=== PATIENT | female | born 1970 | race African-American/Black ===

== ENCOUNTER 2017-05-21 15:13 | Emergency (ER) | payer OTHER ==
[2017-05-21 15:22] VITALS: TEMP 97.7; BMI 20.5
--- NOTE | 2017-05-21 16:46 | PDOC ---
History of Present Illness - General Chief Complaint: Blood Transfusion Stated Complaint: SENT FOR EVALUATION Time Seen by Provider: 05/21/17 16:38 History Source: Patient - History of Present Illness Initial Comments: 05/21/17 16:48 CC: "I need a blood transfusion" Patient is a 47 y.o. female with a PMH of GERD, CHF, CKD, HTN, HLD, IDDM, Anemia (likely 2/2 to chronic disease) who presents to our ED today following lab results at an outside institution that shows Hb levels of 7 (as per EMR, patient's baseline Hb is 9-10). Patient denies any SiSx of anemia including palpitations, shortness of breath, lightheadedness. Patient further denies chest pain, abdominal pain, nausea, vomiting or diarrhea. Past History - Past Medical History Allergies/Adverse Reactions: Allergies Allergy/AdvReac Type Severity Reaction Status Date / Time No Known Allergies Allergy Verified 05/21/17 15:18 Home Medications: Ambulatory Orders Amlodipine Besylate 10 mg PO DAILY 04/02/16 Aspirin [Aspirin EC] 81 mg PO DAILY 04/02/16 Atorvastatin Calcium 40 mg PO DAILY 04/02/16 Ferrous Sulfate 325 mg PO BID 04/02/16 Sertraline HCl [Zoloft -] 25 mg PO DAILY 04/02/16 Insulin (Levemir) [Levemir Vial] 7 units SQ AM #1 ml 04/07/16 Labetalol HCl [Normodyne -] 200 mg PO BID #30 tablet 07/08/16 Lisinopril [Prinivil] 10 mg PO DAILY #30 tablet 07/08/16 Unobtainable 05/21/17 Anemia: Yes Asthma: No Cancer: No Cardiac Disorders: Yes CVA: No COPD: No CHF: No Dementia: No Diabetes: Yes (iddm) GI Disorders: Yes (gerd) Disorders: No HTN: Yes Hypercholesterolemia: Yes Liver Disease: (? cirrhosis) Seizures: No Thyroid Disease: No - Surgical History Abdominal Surgery: Yes Appendectomy: No Cardiac Surgery: No Cholecystectomy: No Lung Surgery: No Neurologic Surgery: No Orthopedic Surgery: No - Immunization History Immunization Up to Date: Yes - Suicide/Smoking/Psychosocial Hx Smoking Status: No Smoking History: Never smoked Have you smoked in the past 12 months: No Number of Cigarettes Smoked Daily: 0 Cigars Per Day: 0 Hx Alcohol Use: No Drug/Substance Use Hx: No Substance Use Type: None Hx Substance Use Treatment: No Review of Systems - Review of Systems Constitutional: No: Chills, Fever HEENTM: No: Blurred Vision, Double Vision Respiratory: No: Cough, Shortness of Breath Cardiac (ROS): Yes: Lightheadedness. No: Chest Pain, Palpitations ABD/GI: No: Constipated, Diarrhea, Nausea, Vomiting : No: Burning, Dysuria *Physical Exam - Vital Signs Last Vital Signs Temp Pulse Resp BP Pulse Ox 97.7 F 94 H 20 150/85 100 05/21/17 15:18 05/21/17 15:18 05/21/17 15:18 05/21/17 15:18 05/21/17 15:18 - Physical Exam General Appearance: Yes: Nourished, Thin HEENT: positive: Other (No conjunctival pallor noted B/L) Neck: positive: Trachea midline, Supple Respiratory/Chest: positive: Lungs Clear, Normal Breath Sounds Cardiovascular: positive: S1, S2 Gastrointestinal/Abdominal: positive: Normal Bowel Sounds, Soft Musculoskeletal: negative: CVA Tenderness, CVA Tenderness (R) Neurologic: positive: inventory control supervisor II-XII NML intact, Fully Oriented, Alert ED Treatment Course - LABORATORY CBC & Chemistry Diagram: 05/21/17 18:13 05/21/17 18:13 Medical Decision Making - Medical Decision Making 05/21/17 19:03 Patient is a 47 y.o. female who presents at behest of her PCP for a reported Hb of 7 PLAN: 1. CBC, CMP 2. Gentle Hydration - patient denies h/o of CHF, Echo in 2014 shows EF 55% however previous notes state PMH of CHF Will send Type/Screen and Coags pending confirmation of Hb result Patient signed out to Dr. Ronan Ham (Resident) and Dr. Vo (Attending ) 05/21/17 19:06 Patient's Hb 9.0. Patient discharged with copy of her labs and direction with her PCP Dr. Burch. *DC/Admit/Observation/Transfer Diagnosis at time of Disposition: Abnormal laboratory test result - Discharge Dispostion Disposition: HOME Condition at time of disposition: Good Admit: No - Referrals Referrals: Myesha Burch MD [Primary Care Provider] - - Patient Instructions Printed Discharge Instructions: Anemia, Anemia of Chronic Disease Additional Instructions: Please follow up with your primary care doctor tomorrow as scheduled. You have been provided a copy of your labs, please take these with you. Please return to the Emergency Department should you have any worsening or concerning symptoms.
--- NOTE | 2017-05-21 17:17 | PDOC ---
Attending Attestation - Resident Resident Name: Harriet Sandoval - ED Attending Attestation I have performed the following: I have examined & evaluated the patient, The case was reviewed & discussed with the resident, I agree w/resident's findings & plan, Exceptions are as noted - HPI HPI: 05/21/17 17:11 47yo F hx GERD, CKD, HTN, HL, IDDM, CVA w no residual deficits p/w hgb 7 from outpt labs Friday. Pt denies any symptoms, states she is at her baseline. Reports no lightheadedness, sob, dizziness, cp, palpitations, headache, weakness or numbness, rashes. PMD: Dr. Weaver ([facility]) - Physicial Exam PE: 05/22/17 01:50 GENERAL: Awake, alert, and fully oriented, in no acute distress HEAD: No signs of trauma EYES: PERRLA, EOMI, sclera anicteric, conjunctiva clear ENT: Auricles normal inspection, hearing grossly normal, nares patent, oropharynx clear without exudates. Moist mucosa NECK: Normal ROM, supple, no lymphadenopathy, JVD, or masses LUNGS: Breath sounds equal, clear to auscultation bilaterally. No wheezes, and no crackles HEART: Regular rate and rhythm, normal S1 and S2, no murmurs, rubs or gallops ABDOMEN: Soft, nontender, normoactive bowel sounds. No guarding, no rebound. No masses EXTREMITIES: Normal range of motion, no edema. No clubbing or cyanosis. No cords, erythema, or tenderness NEUROLOGICAL: Normal speech, cranial nerves intact, negative pronator drift, 5/ 5 strength in all 4 extremities, normal sensation to light touch in all 4 extremities, normal cerebellar exam, normal gait, normal reflexes and tone SKIN: Warm, Dry, normal turgor, no rashes or lesions noted. - Medical Decision Making 05/22/17 01:51 47-year-old female with multiple medical problems presents with hemoglobin of 7 on outpatient labs. Patient is asymptomatic here in the emergency department with normal exam and normal vitals. Our repeat hemoglobin here is 9 which is her baseline hemoglobin. Will discharge patient to follow-up with her primary doctor tomorrow as scheduled. I discussed the physical exam findings, ancillary test results and final diagnoses with the patient. I answered all of the patient's questions. The patient was satisfied with the care received and felt comfortable with the discharge plan and treatment plan. The patient will call their primary care physician within 24 hours to arrange follow-up and will return to the Emergency Department with any new, persistent or worsening symptoms.
[2017-05-21] MEDS ORDERED: SODIUM CHLORIDE 0.9% 1000 ML INFUS.BAG IV ONE (18:16)
[2017-05-21 18:19] LABS: BASOPHIL 0.3 % (0-2.0); EOSINOPHIL 8.8 % (0-4.5); MCH 26.9 pg (25.7-33.7); MCHC 33.2 g/dl (32.0-36.0); MEAN CELL VOLUME 80.9 fl (80-96); MEAN PLT VOLUME 8.8 fl (7.5-11.1); NEUTROPHILS 64.1 % (42.8-82.8); PLATELET COUNT 396 K/MM3 (134-434); RDW 16.2 % (11.6-15.6); WHITE BLOOD COUNT 8.7 K/mm3 (4.0-10.0)
[2017-05-21 18:41] LABS: ALBUMIN 2.6 g/dl (3.4-5.0); ALK PHOS 83 U/L (45-117); ANION GAP 10 (8-16); BILIRUBIN,TOTAL 0.2 mg/dL (0.2-1.0); CALCIUM 8.8 mg/dL (8.5-10.1); CO2 25 mmol/L (21-32); CREATININE 1.6 mg/dL (0.55-1.02); GLUCOSE,RANDOM 275 mg/dL (74-106); SGOT/AST 22 U/L (15-37); SGPT/ALT 24 U/L (12-78); TOT PROT 6.6 g/dl (6.4-8.2)
--- NOTE | 2017-05-21 19:28 | PDOC ---
*Physical Exam - Vital Signs Last Vital Signs Temp Pulse Resp BP Pulse Ox 97.7 F 94 H 20 150/85 100 05/21/17 15:18 05/21/17 15:18 05/21/17 15:18 05/21/17 15:18 05/21/17 15:18 ED Treatment Course - LABORATORY CBC & Chemistry Diagram: 05/21/17 18:13 05/21/17 18:13 - ADDITIONAL ORDERS Additional order review: Laboratory Results 05/21/17 05/21/17 18:13 18:13 Sodium 138 Potassium 4.8 D Chloride 103 Carbon Dioxide 25 Anion Gap 10 BUN 33 H D Creatinine 1.6 H D Creat Clearance w eGFR 34.55 Random Glucose 275 H D Calcium 8.8 Total Bilirubin 0.2 D AST 22 D ALT 24 D Alkaline Phosphatase 83 Total Protein 6.6 Albumin 2.6 L Urine HCG, Qual Negative 05/21/17 18:13 RBC 3.36 L MCV 80.9 MCHC 33.2 RDW 16.2 H MPV 8.8 Neutrophils % 64.1 Lymphocytes % 22.5 Monocytes % 4.3 Eosinophils % 8.8 H D Basophils % 0.3 - Medications Given in the ED: ED Medications Discontinued Medications Generic Name Dose Route Start Last Admin Trade Name Freq PRN Reason Stop Dose Admin Sodium Chloride 500 ml 05/21/17 18:16 05/21/17 18:34 Normal Saline - IV 05/21/17 18:17 500 ml ONCE ONE Administration Medical Decision Making - Medical Decision Making 05/21/17 19:28 Care taken over from Dr. Sandoval. *DC/Admit/Observation/Transfer Diagnosis at time of Disposition: Abnormal laboratory test result - Discharge Dispostion Disposition: HOME Condition at time of disposition: Good - Referrals Referrals: Myesha Burch MD [Primary Care Provider] - - Patient Instructions Printed Discharge Instructions: Anemia, Anemia of Chronic Disease Additional Instructions: Please follow up with your primary care doctor tomorrow as scheduled. You have been provided a copy of your labs, please take these with you. Please return to the Emergency Department should you have any worsening or concerning symptoms. - Post Discharge Activity
[2017-05-21 19:55] VITALS: BP 145/89; PULSE 89
== END 2017-05-21 19:57 | disposition home or self-care (01) ==
LOC: JER 15:13
PROC: 3E0337Z Introduction of Electrolytic and Water Balance Substance into Peripheral Vein, Percutaneous Approach (ICD-10-PCS; principal; 2017-05-21)
DX: R79.9 Abnormal finding of blood chemistry, unspecified (principal); K21.9 Gastro-esophageal reflux disease without esophagitis; I10 Essential (primary) hypertension; E78.5 Hyperlipidemia, unspecified; E11.9 Type 2 diabetes mellitus without complications; I50.9 Heart failure, unspecified
CPT/HCPCS: 36415; 71020-TC; 80053; 84703; 85025; 99282-25

== ENCOUNTER 2019-08-15 08:02 | Emergency (ER) | payer OTHER ==
[2019-08-15 08:16] VITALS: BMI 20.5
[2019-08-15] MEDS ORDERED: ONDANSETRON 4 MG/2 ML VIAL IVPUSH ONE (08:26)
--- NOTE | 2019-08-15 08:27 | PDOC ---
History of Present Illness - General Chief Complaint: Nausea/Vomiting Stated Complaint: POSSIBLE FOOD POISONING Time Seen by Provider: 08/15/19 08:05 - History of Present Illness Initial Comments: 49yo F with PMH of HTN, HLD, DM, GERD presenting with vomiting x 3 days. Patient 's mother called 9- when patient continued to vomit. She has been vomiting "all day." Not able to tolerate any po intake. This has never happened before. No abdominal pain. Due to the vomiting, patient has been unable to take any of her medications at home. Per EMS, fingerstick glucose was in the 180s. Denies tobacco, alcohol, or other recreational substance abuse. No sick contacts or recent travel. Denies fevers, chills, chest pain, or shortness ofb reath. PCP: a provider affiliated with [facility] ROS: Constitutional: no fever, no chills HEENT: no throat pain, no dysphagia Cardiovascular: no chest pain, no palpitations Respiratory: no cough, no shortness of breath Gastrointestinal: no abdominal pain, +vomiting Genitourinary: no dysuria, no hematuria Musculoskeletal: no myalgia, no arthralgia Skin: no rash, no itching Neurologic: no headache, +weakness PE: General: Awake, alert, and fully oriented, retching into emesis bag, appears lethargic Head: No signs of trauma Eyes: EOMI, sclera anicteric ENT: Dry mucus membranes Neck: Normal ROM, supple Lungs: Lungs clear, Normal breath sounds Cardio: Regular rhythm, S1 and S2 present Abdomen: Soft, nontender. No guarding, no rebound, no masses Extremities: Normal range of motion, Distal pulses present SKIN: Warm, Dry, normal turgor Neurologic: Cranial nerves II through XII grossly intact. Normal speech ED Course/MDM: DDX including but not limited to ACS, hypertensive urgency/emergency, pancreatitis, , cannabinoid hyperemesis VS significant for hypertension Labs, EKG, CXR Zofran 08/15/19 08:26 EKG: rate 85, Qtc 435, NSR CXR as reported by radiology: " EXAM#: TYPE/EXAM: RESULT: [id number] RAD/CHEST X-RAY PORTABLE* Chest: Weakness. Single view of the chest reveals a large heart, normal aorta and normal keisha. The lungs are clear. The angles are sharp and the soft tissues are intact. Significant arthritic changes are not seen. Impression: No acute chest pathology. No change of an adverse nature since 05/21/2017. 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 to ascertain patient's home meds as [facility] is closed 08/15/19 09:41 CBC WBC 8.1 K/mm3 (4.0-10.0) 08/15/19 08:50 RBC 3.97 M/mm3 (3.60-5.2) 08/15/19 08:50 Hgb 10.5 GM/dL (10.7-15.3) L 08/15/19 08:50 Hct 31.8 % (32.4-45.2) L D 08/15/19 08:50 MCV 80.2 fl (80-96) 08/15/19 08:50 MCH 26.5 pg (25.7-33.7) 08/15/19 08:50 MCHC 33.1 g/dl (32.0-36.0) 08/15/19 08:50 RDW 16.2 % (11.6-15.6) H 08/15/19 08:50 Plt Count 385 K/MM3 (134-434) 08/15/19 08:50 MPV 8.9 fl (7.5-11.1) 08/15/19 08:50 Absolute Neuts (auto) 7.2 K/mm3 (1.5-8.0) 08/15/19 08:50 Neutrophils % 88.2 % (42.8-82.8) H D 08/15/19 08:50 Lymphocytes % 9.8 % (8-40) D 08/15/19 08:50 Monocytes % 0.8 % (3.8-10.2) L D 08/15/19 08:50 Eosinophils % 0.0 % (0-4.5) D 08/15/19 08:50 Basophils % 1.2 % (0-2.0) D 08/15/19 08:50 Nucleated RBC % 0 % (0-0) 08/15/19 08:50 No leukocytosis CMP Sodium 139 mmol/L (136-145) 08/15/19 08:50 Potassium 4.2 mmol/L (3.5-5.1) 08/15/19 08:50 Chloride 105 mmol/L (98-107) 08/15/19 08:50 Carbon Dioxide 25 mmol/L (21-32) 08/15/19 08:50 Anion Gap 10 MMOL/L (8-16) 08/15/19 08:50 BUN 28.6 mg/dL (7-18) H 08/15/19 08:50 Creatinine 1.9 mg/dL (0.55-1.3) H 08/15/19 08:50 Est GFR (CKD-EPI)AfAm 35.26 08/15/19 08:50 Est GFR (CKD-EPI)NonAf 30.42 08/15/19 08:50 POC Glucometer 139 UNITS (80-120) 08/15/19 08:25 Random Glucose 159 mg/dL (74-106) H 08/15/19 08:50 Calcium 9.0 mg/dL (8.5-10.1) 08/15/19 08:50 Total Bilirubin 0.4 mg/dL (0.2-1) 08/15/19 08:50 AST 35 U/L (15-37) 08/15/19 08:50 ALT 38 U/L (13-61) 08/15/19 08:50 Alkaline Phosphatase 109 U/L (45-117) 08/15/19 08:50 Creatine Kinase 205 U/L (26-192) H 08/15/19 08:50 Troponin I < 0.02 ng/ml (0.00-0.05) 08/15/19 08:50 Total Protein 6.1 g/dl (6.4-8.2) L 08/15/19 08:50 Albumin 2.2 g/dl (3.4-5.0) L 08/15/19 08:50 Lipase 100 U/L (73-393) 08/15/19 08:50 Beta-Hydroxybutyrate 10.6 mg/dL (0.2-2.8) H 08/15/19 08:50 Electrolytes unremarkable No anion gap Cr 1.9, which is close to patient's baseline Beta-hydroxybutyrate elevated VBG pH is within normal range; patient is not in DKA UA without infection Pending Utox Patient feeling better; no longer actively retching 08/15/19 10:14 UTox negative Patient did not like the saltine crackers ("they taste bad"). Given valente crackers 08/15/19 11:35 Passed po challenge No vomiting To follow up with primary care physician Return precautions Stable for discharge 08/15/19 12:05 Past History - Past Medical History Allergies/Adverse Reactions: Allergies Allergy/AdvReac Type Severity Reaction Status Date / Time No Known Allergies Allergy Verified 08/15/19 08:16 Home Medications: Ambulatory Orders Amlodipine Besylate 10 mg PO DAILY 04/02/16 Aspirin [Aspirin EC] 81 mg PO DAILY 04/02/16 Atorvastatin Calcium 40 mg PO DAILY 04/02/16 Ferrous Sulfate 325 mg PO BID 04/02/16 Sertraline HCl [Zoloft -] 25 mg PO DAILY 04/02/16 Insulin (Levemir) [Levemir Vial] 7 units SQ AM #1 ml 04/07/16 Labetalol HCl [Normodyne -] 200 mg PO BID #30 tablet 07/08/16 Lisinopril [Prinivil] 10 mg PO DAILY #30 tablet 07/08/16 Unobtainable 05/21/17 Anemia: Yes Asthma: No Cancer: No Cardiac Disorders: Yes CVA: No COPD: No CHF: No Dementia: No Diabetes: Yes (iddm) GI Disorders: Yes (gerd) Disorders: No HTN: Yes Hypercholesterolemia: Yes Liver Disease: (? cirrhosis) Seizures: No Thyroid Disease: No - Surgical History Abdominal Surgery: Yes Appendectomy: No Cardiac Surgery: No Cholecystectomy: No Lung Surgery: No Neurologic Surgery: No Orthopedic Surgery: No - Immunization History Immunization Up to Date: Yes - Psycho Social/Smoking Cessation Hx Smoking Status: No Smoking History: Never smoked Have you smoked in the past 12 months: No Number of Cigarettes Smoked Daily: 0 Cigars Per Day: 0 Hx Alcohol Use: No Drug/Substance Use Hx: No Substance Use Type: None Hx Substance Use Treatment: No *Physical Exam - Vital Signs Last Vital Signs Temp Pulse Resp BP Pulse Ox 98.0 F 100 H 18 219/119 H 98 08/15/19 08:05 08/15/19 08:05 08/15/19 08:05 08/15/19 08:05 08/15/19 08:05 ED Treatment Course - LABORATORY CBC & Chemistry Diagram: 08/15/19 08:50 08/15/19 08:50 Discharge - Discharge Information Problems reviewed: Yes Clinical Impression/Diagnosis: Vomiting Qualifiers: Vomiting type: unspecified Vomiting Intractability: non-intractable Nausea presence: with nausea Qualified Code(s): R11.2 - Nausea with vomiting, unspecified Condition: Improved Disposition: HOME - Follow up/Referral - Patient Discharge Instructions Patient Printed Discharge Instructions: DI for Vomiting -- Adult Additional Instructions: You came into the emergency department with nausea and vomiting. Your blood work showed evidence of dehydration. We gave you medicine which improved your symptoms. Eat and hydrate throughout the day to prevent dehydration and low blood sugar levels. Continue taking home medications as prescribed. Follow-up with your primary care provider within 72 hours to discuss this ED visit and to further evaluate your symptoms. Call and make an appointment tomorrow morning. Your workup is not complete until you do so. Immediate medical attention is required if have: chest pain, palpitations, shortness of breath, severe headaches, changes in vision, focal numbness or weakness, severe abdominal pain, black tarry stool, or any new or concerning symptoms. If you think you are having an emergency, call for emergency medical services or present to the emergency department right away. - Post Discharge Activity
[2019-08-15] MEDS ORDERED: SODIUM CHLORIDE 500 ML IV STA (08:41)
[2019-08-15] MEDS ORDERED: ONDANSETRON 4 MG/2 ML VIAL ONE (08:56)
[2019-08-15 08:58] LABS: VENOUS PC02 43.6 mmHg (38-52); VENOUS PH 7.38 (7.31-7.41); VENOUS PO2 50.7 mmHg (28-48)
[2019-08-15 09:18] LABS: BASO % 1.2 % (0-2.0); HEMATOCRIT 31.8 % (32.4-45.2); HEMOGLOBIN 10.5 GM/dL (10.7-15.3); LYMPH % 9.8 % (8-40); MCH 26.5 pg (25.7-33.7); MCHC 33.1 g/dl (32.0-36.0); MEAN CELL VOLUME 80.2 fl (80-96); MEAN PLT VOLUME 8.9 fl (7.5-11.1); MONO % 0.8 % (3.8-10.2); NEUT % 88.2 % (42.8-82.8); PLATELET COUNT 385 K/MM3 (134-434); RBC 3.97 M/mm3 (3.60-5.2); RDW 16.2 % (11.6-15.6); WHITE BLOOD COUNT 8.1 K/mm3 (4.0-10.0)
[2019-08-15] MEDS ORDERED: amLODIPine BESYLATE 10 MG TABLET (FP) PO ONE (09:37)
[2019-08-15] MEDS ORDERED: amLODIPine BESYLATE 5 MG TABLET (FP) ONE (09:41)
[2019-08-15 09:42] LABS: ALBUMIN 2.2 g/dl (3.4-5.0); ALK PHOS 109 U/L (45-117); ANION GAP 10 MMOL/L (8-16); BILIRUBIN,TOTAL 0.4 mg/dL (0.2-1); BLOOD UREA NITROGEN 28.6 mg/dL (7-18); CHLORIDE 105 mmol/L (98-107); CO2 25 mmol/L (21-32); CREATININE 1.9 mg/dL (0.55-1.3); GLUCOSE,RANDOM 159 mg/dL (74-106); LIPASE 100 U/L (73-393); POTASSIUM 4.2 mmol/L (3.5-5.1); SGOT/AST 35 U/L (15-37); SGPT/ALT 38 U/L (13-61); SODIUM 139 mmol/L (136-145); TOT PROT 6.1 g/dl (6.4-8.2)
[2019-08-15 10:11] LABS: EPI CELLS 9.6 /HPF (0-5/HPF); HYALINE CASTS 21 /lpf (0-8); PH,URINE 5.5 (5.0-8.0); URINE APPEARANCE CLOUDY; URINE BACTERIA 6.4 /hpf (NEGATIVE); URINE BILIRUBIN NEGATIVE (NEGATIVE); URINE COLOR YELLOW; URINE GLUCOSE (UA) 1+ (NEGATIVE); URINE KETONE TRACE (NEGATIVE); URINE LEUK ESTERASE NEGATIVE (NEGATIVE); URINE NITRITE NEGATIVE (NEGATIVE); URINE PROTEIN 4+ (NEGATIVE); URINE RBC 7 /hpf (0-4); URINE UROBILINOGEN 0.2 mg/dL (0.2-1.0); URINE WBC 4 /hpf (0-5)
[2019-08-15 10:41] LABS: COCAINE, UR NEGATIVE ng/ml (CUTOFF=300); METHADONE, UR NEGATIVE ng/ml (CUTOFF=300); OPIATES, URI NEGATIVE ng/ml (CUTOFF=300); PHENCYCLIDINE,URINE NEGATIVE ng/ml (CUTOFF=25); URINE AMPHETAMINES NEGATIVE ng/ml (CUTOFF=500); URINE BARBITURATES NEGATIVE ng/ml (CUTOFF=200); URINE BENZODIAZEPINES NEGATIVE ng/ml (CUTOFF=200)
--- NOTE | 2019-08-15 11:36 | PDOC ---
Documentation entered by Rosemary Galeano SCRIBE, acting as scribe for Wiliam Vo MD. Wiliam Vo MD: This documentation has been prepared by the Waleska harden Joy, SCRIBE, under my direction and personally reviewed by me in its entirety. I confirm that the documentation accurately reflects all work, treatment, procedures, and medical decision making performed by me. Attending Attestation - Resident Resident Name: Riya Grossman - ED Attending Attestation I have performed the following: I have examined & evaluated the patient, The case was reviewed & discussed with the resident, I agree w/resident's findings & plan, Exceptions are as noted - HPI HPI: 08/15/19 10:54 The patient is a 49 year old female with significant past medical history of GERD, CHF, CKD, HTN, HLD, IDDM, anemia, and CVA who presents to the ED with nausea and NBNB vomiting for the last x3 days. The patient states that she has not been able to take her medications for the last couple of days including insulin. She denies associated headache, fevers, chills, CP, SOB, abd pain, diarrhea, urinary sxs, focal weakness/numbness, dizziness. Denies any other symptoms. Allergies: NKA - Physicial Exam PE: 08/15/19 10:51 GENERAL: Awake, alert, and fully oriented, in no acute distress EYES: PERRLA, EOMI, sclera anicteric, conjunctiva clear ENT: Nares patent, oropharynx clear without exudates. Moist mucosa NECK: Normal ROM, supple, no lymphadenopathy, JVD, or masses LUNGS: Breath sounds equal, clear to auscultation bilaterally. No wheezes, and no crackles HEART: Regular rate and rhythm, normal S1 and S2, no murmurs, rubs or gallops ABDOMEN: Soft, nontender, normoactive bowel sounds. No guarding, no rebound. No masses. No CVAT EXTREMITIES: Normal range of motion, no edema. No clubbing or cyanosis. No cords, erythema, or tenderness NEUROLOGICAL: Normal speech, cranial nerves intact, equal strength and sensation b/l SKIN: Warm, Dry, normal turgor, no rashes or lesions noted. - Medical Decision Making 08/15/19 10:34 49yo F with MMP including HTN, DM1 presents to the ED with 3 days of PO intolerance. Vitals with elevated BP and HR most likely due to med non compliance for 2 days Exam unremarkable, pt is well appearing, abd exam benign Likely viral gastroenteritis Plan to check labs, r/o DKA - although FS 139, hydrate, treat symptoms and reassess Will also check trop in light of hx HTN, DM for possible atypical presentation of ACS EKG non ischemic 08/15/19 12:20 Pt feeling significantly better with fluids and zofran Labs wnl Pt is tolerating PO serial abd exams wnl Took home BP meds Clinically stable for DC home I discussed the physical exam findings, ancillary test results and final diagnoses with the patient. I answered all of the patient's questions. The patient was satisfied with the care received and felt comfortable with the discharge plan and treatment plan. The patient will call their primary care physician within 24 hours to arrange follow-up and will return to the Emergency Department with any new, persistent or worsening symptoms.
[2019-08-15 13:17] VITALS: BP 174/92; PULSE 85; TEMP 98.1
== END 2019-08-15 13:15 | disposition home or self-care (01) ==
LOC: JER 08:02
PROC: 3E033GC Introduction of Other Therapeutic Substance into Peripheral Vein, Percutaneous Approach (ICD-10-PCS; principal; 2019-08-15)
DX: A08.4 Viral intestinal infection, unspecified (principal); B97.89 Other viral agents as the cause of diseases classified elsewhere; I25.10 Atherosclerotic heart disease of native coronary artery without angina pectoris; I13.0 Hypertensive heart and chronic kidney disease with heart failure and stage 1 through stage 4 chronic kidney disease, or unspecified chronic kidney disease; N18.9 Chronic kidney disease, unspecified; I50.89 Other heart failure; E10.22 Type 1 diabetes mellitus with diabetic chronic kidney disease; Z79.4 Long term (current) use of insulin; E78.00 Pure hypercholesterolemia, unspecified; K21.9 Gastro-esophageal reflux disease without esophagitis; Z86.2 Personal history of diseases of the blood and blood-forming organs and certain disorders involving the immune mechanism
CPT/HCPCS: 36415; 71045-TC-FY; 80053; 80307; 81003; 82010; 82550; 82553; 82803; 82962; 83690; 84484; 84703; 85025; 87086; 96374; 99284-25

== ENCOUNTER 2019-08-21 19:19 | Emergency (ER) | payer OTHER ==
[2019-08-21 19:47] VITALS: BMI 19.9
--- NOTE | 2019-08-21 20:00 | PDOC ---
Attending Attestation - Resident Resident Name: JangTy - ED Attending Attestation I have performed the following: I have examined & evaluated the patient, The case was reviewed & discussed with the resident, I agree w/resident's findings & plan - HPI HPI: 08/21/19 23:26 Pt took her DM meds and she didn't eat and went to sleep instead. States that her mom called EMS when her blood sugar plummeted. Pt was found to have a FS of 30s. She was treated in the ambulance and here she ate 2 sandwiches and juice and she is feeling better. - Physicial Exam PE: 08/21/19 23:28 Agree with resident exam. Pt has no distress Afebrile VSS Heart and lungs normal Abd soft NT ND No flank pain Normal extremities. Pt is neurologically intact. - Medical Decision Making 08/21/19 23:27 Pt will be sent home. repeat FS is 183. She is feeling well and she lives with mom and she is stable for discharge. Vitals are stable at this time. Heart Score/ECG Review - ECG Intrepretation Rhythm: Regular Rhythm - Brant Brant: Normal - P and MA Delta Wave(s) Present: No WPW: No - QRS Poor R Wave Progression: No Q Wave Present: No - ST and T Early Repolarization: No Non Specific ST-T Wave changes: Yes Flattened T Waves: No Prolonged Q-T Interval: No - ECG Impressions Normal ECG: Yes Non-specific ST Elevation: No Ischemic Changes: Yes (inferolateral flipped T waves) Bradycardia: No Torsades jenifer Pointes: No WPW: No
--- NOTE | 2019-08-21 20:03 | PDOC ---
History of Present Illness - General Chief Complaint: Blood Sugar Problem Stated Complaint: low blood sugar Time Seen by Provider: 08/21/19 19:59 History Source: Patient, EMS Exam Limitations: No Limitations - History of Present Illness Initial Comments: HPI: 49 y/o female presenting to [facility] ER from home after being found unresponsive and hypoglycemic to the 30s by EMS. Call was made by her mother, who lives in the household. Pt received Glucagon and 250cc of D10 enroute with rapid improvement in her BGL. On arrival, the pt has no active complaint. She is a diabetic managed with Basaglar 30 units at bedtime and Metformin BID. Last took the Basaglar last evening. Reports poor PO intake over the past several days "because [she] is not taking care of herself." Did not eat anything today. Did not check her BGL today. Reports she has enough medication at home. New, unopened box of insulin and two full bottles of Metformin at bedside. Denies SI. Social Hx: - EtOH: Denies - Tobacco: Denies Medical Hx: - HTN - CHF - IDDM - HLD - CKD Review of Systems: In addition to that documented in the HPI above, the additional ROS was obtained : Constitutional- Denies fevers or chills Head- Denies vision changes ENMT- Denies sore throat CV- Denies chest pain Resp- Denies SOB GI- Denies vomiting or diarrhea - Denies painful urination MSK- Denies recent trauma Skin- Denies new rashes Neuro- Denies new numbness or tingling or weakness Endocrine- Denies polyuria Heme- Denies bleeding or bruising Physical Examination: Vital signs and nursing notes reviewed. Constitutional- Nontoxic adult female in no acute distress or obvious discomfort. Found semi-fowlers on hospital bed. Answered all questions appropriately and completely. Eating a turkey sandwich. Head- Normocephalic. No obvious external signs of trauma. Eyes- Sclerae white. Cardiovascular / Chest- Regular rate and regular rhythm. No murmur, rubs, clicks , or gallops. Peripheral pulses- radial pulses full. Respiratory- Breathing unlabored. Equal chest rise and fall. Clear to auscultation bilaterally. No stridor, no wheezing, no rhonchi. Gastrointestinal- abdomen is soft, non-tender, non-distended. Neuro- Alert and oriented x4. Moving all four extremities spontaneously. Skin- Warm, dry, and intact. Psych- Affect- appropriate. Mood- normal. Speech was non-labored, non- pressured. Groomed and dressed appropriately. MDM: 49 y/o female presenting with resolved episode of altered mental status suspected secondary to hypoglycemia. Afebrile. Vitals unremarkable for hypotension or tachycardia. Physical exam as described above. Pt's POC glucose continued to trend within the normal limits while pt was observed and ate dinner in the department. Hypoglycemia likely secondary to poor PO intake in setting of poor diabetic medication regimen. Low suspicion for acute infection or intentional overdose. Pt discharged home. ED Attending provided discharge instructions, return precautions, and clinic follow up. Ty Jang M.D., PGY2 Emergency Medicine Resident Past History - Past Medical History Allergies/Adverse Reactions: Allergies Allergy/AdvReac Type Severity Reaction Status Date / Time No Known Allergies Allergy Verified 08/21/19 19:23 Home Medications: Ambulatory Orders Amlodipine Besylate [Norvasc -] 10 mg PO DAILY 08/21/19 Aspirin [ASA -] 81 mg PO DAILY 08/21/19 Atorvastatin Ca [Lipitor] 80 mg PO HS 08/21/19 Insulin Glargine,Hum.rec.anlog [Basaglar Kwikpen U-100] 30 unit SQ ASDIR Labetalol HCl [Normodyne -] 200 mg PO BID 08/21/19 Lisinopril [Prinivil] 5 mg PO DAILY 08/21/19 metFORMIN HCL [Metformin HCl] 850 mg PO BID 08/21/19 Anemia: Yes Asthma: No Cancer: No Cardiac Disorders: Yes CVA: No COPD: No CHF: No Dementia: No Diabetes: Yes (iddm) GI Disorders: Yes (gerd) Disorders: No HTN: Yes Hypercholesterolemia: Yes Liver Disease: (? cirrhosis) Seizures: No Thyroid Disease: No - Surgical History Abdominal Surgery: Yes Appendectomy: No Cardiac Surgery: No Cholecystectomy: No Lung Surgery: No Neurologic Surgery: No Orthopedic Surgery: No - Immunization History Immunization Up to Date: Yes - Psycho Social/Smoking Cessation Hx Smoking Status: No Smoking History: Never smoked Have you smoked in the past 12 months: No Number of Cigarettes Smoked Daily: 0 Cigars Per Day: 0 Information on smoking cessation initiated: No Hx Alcohol Use: No Drug/Substance Use Hx: No Substance Use Type: None Hx Substance Use Treatment: No *Physical Exam - Vital Signs Last Vital Signs Temp Pulse Resp BP Pulse Ox 36.6 C 90 18 184/88 H 100 08/21/19 19:41 08/21/19 19:41 08/21/19 19:41 08/21/19 19:41 08/21/19 19:41 ED Treatment Course - ADDITIONAL ORDERS Additional order review: Laboratory Results 08/21/19 19:39 POC Glucometer 195 08/21/19 19:39 POC Glucometer 195 Discharge - Discharge Information Problems reviewed: Yes Clinical Impression/Diagnosis: Hypoglycemia due to insulin Condition: Good Disposition: HOME - Admission No - Follow up/Referral Referrals: ON STAFF,NOT [Non Staff, Medical] - - Patient Discharge Instructions Patient Printed Discharge Instructions: DI for Hypoglycemia Additional Instructions: You were seen today for low blood sugar. Your glucose likely dropped because you took your insulin but did not eat. You need to make sure to follow your primary care doctor's instructions on how to take your Metformin, your insulin, and how often to check your blood sugar at home. Follow up with your primary care doctor in the next 3-4 days. You will need to call to make an appointment. The number is included in this packet. A copy of todays results are attached to this packet. Take it to the appointment so your doctor can review them. Go to the nearest emergency department if your condition worsens or you feel like you need additional emergency evaluation. Print Language: SENEGALESE - Post Discharge Activity Work/Back to School Note: Back to Work
[2019-08-21 21:49] LABS: EPI CELLS 26.2 /HPF (0-5/HPF); HYALINE CASTS 13 /lpf (0-8); URINE APPEARANCE CLOUDY; URINE BACTERIA 18.9 /hpf (NEGATIVE); URINE BILIRUBIN NEGATIVE (NEGATIVE); URINE COLOR YELLOW; URINE GLUCOSE (UA) 1+ (NEGATIVE); URINE KETONE NEGATIVE (NEGATIVE); URINE LEUK ESTERASE NEGATIVE (NEGATIVE); URINE NITRITE NEGATIVE (NEGATIVE); URINE PROTEIN 4+ (NEGATIVE); URINE RBC 2 /hpf (0-4)
[2019-08-21 21:55] LABS: URINE WBC 9.6 /hpf (0-5)
[2019-08-21 23:34] VITALS: BP 110/67; PULSE 100; TEMP 98
--- NOTE | 2019-08-22 13:37 | EKG ---
Test Reason : Blood Pressure : / mmHG Vent. Rate : 097 BPM Atrial Rate : 097 BPM P-R Int : 128 ms QRS Dur : 070 ms QT Int : 356 ms P-R-T Axes : 063 048 -31 degrees QTc Int : 452 ms NORMAL SINUS RHYTHM POSSIBLE LEFT ATRIAL ENLARGEMENT T WAVE ABNORMALITY, CONSIDER ANTEROLATERAL ISCHEMIA ABNORMAL ECG WHEN COMPARED WITH ECG OF 05-JUL-2016 23:29, NONSPECIFIC T WAVE ABNORMALITY NOW EVIDENT IN INFERIOR LEADS T WAVE INVERSION MORE EVIDENT IN ANTEROLATERAL LEADS Confirmed by NORMA CHAPA, SANJUANITA ([id number]) on 08/22/2019 1:36:58 PM Referred By: Confirmed By:SANJUANITA GREEN MD
== END 2019-08-21 21:34 | disposition home or self-care (01) ==
LOC: SUPCPDRO 19:19 → JER 19:19
DX: Z79.4 Long term (current) use of insulin (principal); E10.649 Type 1 diabetes mellitus with hypoglycemia without coma; E10.22 Type 1 diabetes mellitus with diabetic chronic kidney disease; I25.10 Atherosclerotic heart disease of native coronary artery without angina pectoris; I13.0 Hypertensive heart and chronic kidney disease with heart failure and stage 1 through stage 4 chronic kidney disease, or unspecified chronic kidney disease; N18.9 Chronic kidney disease, unspecified; I50.89 Other heart failure; E78.5 Hyperlipidemia, unspecified; K21.9 Gastro-esophageal reflux disease without esophagitis
CPT/HCPCS: 81003; 82962; 93005; 93010; 99283-25

== ENCOUNTER 2022-04-28 10:11 | Inpatient (IN) | payer OTHER ==
[2022-04-28] MEDS ORDERED: niCARdipine HCL 25 MG/10 ML AMPUL IVPB ONE (10:39)
[2022-04-28] MEDS ORDERED: LABETALOL HCL 5 MG/1 ML (100MG/20 ML VIAL) IVPUSH ONE (10:40)
[2022-04-28] MEDS: NICARDIPINE 25 MG in DEXTROSE 5%-WATER - 240 ML IVPB SCH (10:50)
[2022-04-28 10:55] LABS: INR 0.9 (0.83-1.09); PROTHROMBIN TIME (PATIENT) 10.3 SEC (9.7-13.0)
[2022-04-28 10:57] LABS: ACTIVATED PTT 25.8 SECONDS (25.2-36.5)
[2022-04-28 11:05] LABS: CHLORIDE 100 mmol/L (98-107); SODIUM 135 mmol/L (136-145)
[2022-04-28 11:07] LABS: ALBUMIN 3.5 g/dl (3.4-5.0); BLOOD UREA NITROGEN 36.9 mg/dL (7-18); CALCIUM 10.1 mg/dL (8.5-10.1); CO2 23 mmol/L (21-32); GLUCOSE,RANDOM 247 mg/dL (74-106); MAGNESIUM 2.1 mg/dL (1.8-2.4)
[2022-04-28 11:10] LABS: CREATININE 5.4 mg/dL (0.55-1.3); PHOSPHOROUS 3.6 mg/dL (2.5-4.9); SGOT/AST 102 U/L (15-37); SGPT/ALT 143 U/L (13-61)
[2022-04-28 11:12] LABS: ALK PHOS 215 U/L (45-117); BILIRUBIN,TOTAL 0.4 mg/dL (0.2-1); TOT PROT 8.2 g/dl (6.4-8.2)
[2022-04-28 11:20] LABS: EPI CELLS 2 /uL (0-25.1); HYALINE CASTS 0 /uL (0-3.1); PH,URINE 8.5 (5.0-8.0); URINE APPEARANCE CLEAR; URINE BACTERIA 2 /uL (0-1359); URINE BILIRUBIN NEGATIVE (NEGATIVE); URINE COLOR YELLOW; URINE GLUCOSE (UA) 1+ (NEGATIVE); URINE KETONE NEGATIVE (NEGATIVE); URINE LEUK ESTERASE NEGATIVE (NEGATIVE); URINE NITRITE NEGATIVE (NEGATIVE); URINE PROTEIN 3+ (NEGATIVE); URINE RBC 6 /uL (0-23.9); URINE UROBILINOGEN 0.2 mg/dL (0.2-1.0); URINE WBC 1 /uL (0-25.8)
[2022-04-28 11:25] LABS: ANION GAP 11 MMOL/L (8-16)
[2022-04-28 11:33] LABS: BASO % 1.2 % (0-2.0); EOS % 2.5 % (0-4.5); HEMATOCRIT 34.9 % (32.4-45.2); HEMOGLOBIN 11.6 GM/dL (10.7-15.3); LYMPH % 8.5 % (8-40); MCHC 33.2 g/dl (32.0-36.0); MEAN CELL VOLUME 84.4 fl (80-96); MEAN PLT VOLUME 8.4 fl (7.5-11.1); MONO % 3.2 % (3.8-10.2); NEUT % 84.6 % (42.8-82.8); PLATELET COUNT 210 10^3/uL (134-434); RBC 4.13 M/mm3 (3.60-5.2); RDW 17.3 % (11.6-15.6); WHITE BLOOD COUNT 11.7 K/mm3 (4.0-10.0)
[2022-04-28] MEDS ORDERED: levETIRAcetam 500 MG/5 ML INJECTION VIAL IVPB ONE ×2 (11:44→11:45)
[2022-04-28 11:55] LABS: PHENCYCLIDINE,URINE NEGATIVE (NEGATIVE)
[2022-04-28 11:56] LABS: COCAINE, UR NEGATIVE (NEGATIVE); METHADONE, UR NEGATIVE (NEGATIVE); OPIATES, URI NEGATIVE (NEGATIVE); URINE BARBITURATES NEGATIVE (NEGATIVE)
[2022-04-28 11:57] LABS: URINE AMPHETAMINES NEGATIVE (NEGATIVE); URINE BENZODIAZEPINES NEGATIVE (NEGATIVE)
[2022-04-28] MEDS: MUPIROCIN 2% TOPICAL OINTMENT FOR DECOLONIZATION NS SCH ×2 (14:30→21:41)
[2022-04-28] MEDS: levETIRAcetam 500 MG/5 ML INJECTION VIAL IVPB SCH ×2 (14:30→21:40)
[2022-04-28] MEDS: CHLORHEXIDINE GLUCONATE 4% CLEANSER FOR DECOLONIZATION TP SCH (21:40)
[2022-04-29] MEDS: NICARDIPINE 25 MG in DEXTROSE 5%-WATER - 240 ML IVPB SCH ×3 (01:31→13:40)
[2022-04-29] MEDS: MUPIROCIN 2% TOPICAL OINTMENT FOR DECOLONIZATION NS SCH ×2 (09:15→22:01)
[2022-04-29] MEDS: levETIRAcetam 500 MG/5 ML INJECTION VIAL IVPB SCH ×2 (09:15→22:03)
[2022-04-29 13:58] LABS: ARTERIAL BLD GAS O2 SATURATION 99.3 % (95-98); ARTERIAL BLOOD GAS BASE EXCESS 1.5 mmol/L (-2-2); ARTERIAL BLOOD GAS PO2 177.6 mmHg (80-100); ARTERIAL BLOOD GAS pH 7.499 (7.350-7.450)
[2022-04-29 13:59] LABS: ALLENS TEST POSITIVE
[2022-04-29 14:00] LABS: VENT MODE A/C; VENT RATE 16
[2022-04-29 15:15] VITALS: BMI 22.6
[2022-04-29] MEDS: CHLORHEXIDINE GLUCONATE 4% CLEANSER FOR DECOLONIZATION TP SCH (22:01)
[2022-04-30 07:14] VITALS: BP 101/61; PULSE 108; TEMP 98.7
[2022-04-30 08:42] VITALS: RESP 16
== END 2022-04-30 12:35 | disposition expired | DRG 44 ==
LOC: JER 10:11 → JERBED 11:44 → JICU 13:08
PROVIDERS: ADMIT Internal Medicine Pulmonary Disease; ATTEND Internal Medicine Pulmonary Disease
PROC: 5A1945Z Respiratory Ventilation, 24-96 Consecutive Hours (ICD-10-PCS; principal; 2022-04-28)
PROC: 5A12012 Performance of Cardiac Output, Single, Manual (ICD-10-PCS; 2022-04-30)
DX: I61.5 Nontraumatic intracerebral hemorrhage, intraventricular (principal); I13.2 Hypertensive heart and chronic kidney disease with heart failure and with stage 5 chronic kidney disease, or end stage renal disease; N18.6 End stage renal disease; K76.6 Portal hypertension; I50.9 Heart failure, unspecified; E11.22 Type 2 diabetes mellitus with diabetic chronic kidney disease; I16.1 Hypertensive emergency; R41.82 Altered mental status, unspecified; K21.9 Gastro-esophageal reflux disease without esophagitis; E78.00 Pure hypercholesterolemia, unspecified; I46.9 Cardiac arrest, cause unspecified; K74.60 Unspecified cirrhosis of liver; D64.9 Anemia, unspecified; Z99.2 Dependence on renal dialysis; Z86.73 Personal history of transient ischemic attack (TIA), and cerebral infarction without residual deficits
CPT/HCPCS: 36415; 36600; 70450-TC; 71045-TC-FY; 80053; 80307; 81003; 82803; 83735; 84100; 84132; 84484; 85025; 85610; 85730; 86850; 86900; 86901; 87086; 87804; 93005; 93010; 94002; 99285-25; C9803-CS; U0003; U0005